=== PATIENT | male | born 1960 | race Caucasian/White ===

== ENCOUNTER 2017-12-09 13:56 | Emergency (ER) | payer SELFPAY ==
[~2017-12-09] VITALS: Ht 175.3 cm; Wt 87.0 kg
[2017-12-09 14:03] VITALS: BP 142/82
== END 2017-12-09 21:47 | disposition left against medical advice (07) ==
LOC: ER 13:56
DX: M79.604 Pain in right leg (principal); M79.605 Pain in left leg; Z53.21 Procedure and treatment not carried out due to patient leaving prior to being seen by health care provider